=== PATIENT | male | born 1965 | race African-American/Black ===

== ENCOUNTER 2020-11-30 08:51 | Day surgery (SDC) | payer OTHER ==
[2020-11-21 17:23] VITALS: BMI 28.8
[2020-11-30] MEDS ORDERED: BUPIVACAINE HCL/PF 0.25% (2.5MG/ML) 10 ML VIAL ONE (10:23)
[2020-11-30] MEDS ORDERED: POLYMYXIN B SULFATE 500,000 UNIT VIAL ONE (10:24)
[2020-11-30] MEDS ORDERED: MIDAZOLAM HCL 2 MG/2 ML SINGLE DOSE VIAL ONE (11:00)
[2020-11-30] MEDS ORDERED: BUPIVACAINE HCL/PF 0.25% (2.5MG/ML) 10 ML VIAL IJ ONE (11:45)
[2020-11-30] MEDS ORDERED: PROPOFOL 20 ML ONE (11:55)
[2020-11-30] MEDS ORDERED: PROMETHAZINE HCL 25 MG/1 ML VIAL IVPUSH PRN (12:15)
[2020-11-30] MEDS ORDERED: oxyCODONE HCL 5 MG TABLET PO PRN ×2 (12:15)
[2020-11-30] MEDS ORDERED: ONDANSETRON 4 MG/2 ML VIAL IVPUSH PRN (12:15)
[2020-11-30 15:11] VITALS: TEMP 98
[2020-11-30 15:37] VITALS: BP 138/82; PULSE 64
== END 2020-11-30 14:20 | disposition home or self-care (01) ==
LOC: FASU 08:51
PROVIDERS: ATTEND Orthopaedic Surgery
PROC: 0MB30ZZ Excision of Right Elbow Bursa and Ligament, Open Approach (ICD-10-PCS; principal; 2020-11-30 11:33)
DX: M70.21 Olecranon bursitis, right elbow (principal); M77.8 Other enthesopathies, not elsewhere classified
CPT/HCPCS: 88304-TC; 88311-TC; 94760